=== PATIENT | male | born 1990 | race Caucasian/White ===

== ENCOUNTER 2025-07-04 23:39 | Emergency (ER) | payer OTHER, SELFPAY ==
--- NOTE | ~2025-07-04 | CT_ITS ---
CT abdomen pelvis w con Clinical History: abdominal pain, rectal bleeding . Comparison: None Technique: Axial images lung bases to symphysis pubis 100 mL Omnipaque 350 Coronal, sagittal reformats CT images acquired with automatic exposure control for dose reduction DLP: 457 mGy-cm Findings: Lung bases: Clear. Visualized heart and pericardium: Unremarkable. Liver: Unremarkable. Gallbladder: Unremarkable. Spleen: Unremarkable. Pancreas: Unremarkable. Adrenal glands: Unremarkable. Kidneys: Right kidney- No hydronephrosis. No renal stones. Small cyst. Left kidney- No hydronephrosis. No renal stones. Distal esophagus/stomach: Small sliding hiatal hernia. Small bowel loops: Normal caliber and wall thickness. Colon: Normal caliber and wall thickness. Normal RLQ appendix. Nodes: No enlarged nodes. Peritoneum: No ascites. No free air. Urinary bladder: Unremarkable. Prostate: Unremarkable. Bones: No acute bony abnormality. Soft tissues: Unremarkable. Aorta: No aneurysm or dissection. IVC: Unremarkable. Main portal vein/SMV/splenic vein: Patent. IMPRESSION: 1. No acute findings. Reviewed, dictated and finalized at location R. IMPRESSION: 1. No acute findings.
[2025-07-04 23:55] VITALS: BP 150/94; PULSE 69; RESP 18; TEMP 36.4; O2SAT 98
[2025-07-05 01:11] VITALS: BP 149/86; PULSE 79; RESP 15; O2SAT 99
[2025-07-05 01:16] VITALS: BP 146/86; PULSE 80; RESP 11; O2SAT 98
--- OUTSIDE RECORDS SUMMARY | 2025-07-05 01:19 | XMS_ITS | Encounter Summary ---
Author Organization [facility] Address [address] [place] [address] Care Team Providers Care Fruit Buying Grader Name Role Phone Unavailable Primary Care Provider Unavailabl e Encounter Details Date Type Department Care Team (Latest Contact Info) Description 10/08/2023 [facility] ADM Social History Tobacco Use Types Packs/Day Years Used Date Smoking Tobacco: Never Assessed Sex and Gender Information Value Date Recorded Sex Assigned at Not on file Legal Sex Male 8:50 AM [facility] Gender Identity Not on file Sexual Orientation Not on file documented as of this encounter Plan of Treatment Not on file documented as of this encounter Visit Diagnoses Not on filedocumented in this encounter
--- OUTSIDE RECORDS SUMMARY | 2025-07-05 01:19 | XMS_ITS | Clinical Summary ---
Author Organization [facility] Care Team Providers Care Feather Boner Name Role Phone Unavailable Primary Care Provider Unavailabl e Social History Tobacco Use Types Packs/Day Years Used Date Smoking Tobacco: Never Assessed Sex and Gender Information Value Date Recorded Sex Assigned at Not on file Legal Sex Male 10:56 AM [facility] Gender Identity Not on file Sexual Orientation Not on file Plan of Treatment Health Maintenance Due Date Last Done Comments Hepatitis C Virus (HCV) Screening 1989 Hepatitis B Immunization (1 of 3 - 19+ 3-dose series) 2008 Human Papillomavirus (HPV) Immunization (1 - 3-dose SCDM series) 2016 Influenza Immunization (#1) 05/07/202507/07, 06/06/2015 SARS-COV-2 Immunization ( season) 2025 12/15/2020, 11/19/2020 Respiratory Syncytial Virus (RSV) Immunization (Adult) (1 - 1-dose 75+ series) 2064 DTaP/Tdap/Td Immunization Discontinued 06/06/2015 TdaP Immunization Completed 06/06/2015 Meningococcal Immunization (ACWY) Aged Out No longer eligible based on patient's age to complete this topic Pneumococcal Immunization Combined Aged Out No longer eligible based on patient's age to complete this topic Rotavirus Immunization Aged Out No lo nger eligible based on patient's age to complete this topic
--- OUTSIDE RECORDS SUMMARY | 2025-07-05 01:19 | XMS_ITS | Encounter Summary ---
Author Organization [facility] Address [address] [place] [address] Care Team Providers Care Digital Producer Name Role Phone Unavailable Primary Care Provider Unavailabl e Encounter Details Date Type Department Care Team (Latest Contact Info) Description 08/11/2023 [facility] BIOMETRIC [facility] ADM Social History Tobacco Use Types Packs/Day Years Used Date Smoking Tobacco: Never Assessed Sex and Gender Information Value Date Recorded Sex Assigned at Not on file Legal Sex Male 8:50 AM [facility] Gender Identity Not on file Sexual Orientation Not on file documented as of this encounter Plan of Treatment Not on file documented as of this encounter Visit Diagnoses Not on filedocumented in this encounter
--- OUTSIDE RECORDS SUMMARY | 2025-07-05 01:19 | XMS_ITS | Clinical Summary ---
Author Organization [facility] Address [address] [place] [id number] Care Team Providers Care Manager Labor Relations Name Role Phone Unavailable Primary Care Provider Unavailabl e Social History Tobacco Use Types Packs/Day Years Used Date Smoking Tobacco: Never Assessed Sex and Gender Information Value Date Recorded Sex Assigned at Not on file Legal Sex Male 8:50 AM [facility] Gender Identity Not on file Sexual Orientation Not on file Plan of Treatment Not on file Insurance [facility]
--- OUTSIDE RECORDS SUMMARY | 2025-07-05 01:20 | XMS_ITS | Patient Health Record ---
Author Organization [facility] Address [address] [place], [place] [id number] Care Team Providers Care Superintendent Measurement Name Role Phone CRISTOFER REVELES Unavailable [phone] Shai Kauffman Unavailable Unavailable Reason For Referral No Information Social History Social History Additional Details Category Social Info Options Details Migrated Social History Migrated Social History History of tobacco use : , Smoking Status : Never smoked , Alcohol intake : Plan Of Treatment No Information Insurance Providers Payer Name Payer Address Payer Phone Subscriber Number Group Number Insured Name Patient Relationship to Insured Coverage Start Date Coverage End Date [facility] ATTN CLAIMS [address] [place] [address] [id number] ROBERT CABRAL Self - patient is the insured
--- OUTSIDE RECORDS SUMMARY | 2025-07-05 01:20 | XMS_ITS | Clinical Summary ---
Author Organization [facility] Address [address] [place] [address] Care Team Providers Care Resistor Coater Name Role Phone Unknown, Provider Primary Care Provider Unavaila ble Source Comments [facility],non-owned Affiliates and Associated Physician Practices is amultiple site organization consisting of ambulatory clinics and hospital sitesin [place], [place], [place] and [place]. This disclosure is being madepursuant to the Care Everywhere program and may not contain all information available regarding this patient. Last updated 18.[facility] Medications * Be aware that medications may not be up to date on this document. Alwaysverify current medications with the patient. No known medications Immunizations Immunization Administration Dates Next Due INFLUENZA VACCINE, QUADR. 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 Gender Identity Not on file Sexual Orientation Not on file Plan of Treatment Health Maintenance Due Date Last Done Comments HIV SCREENING 2004 HEPATITIS C SCREENING 08/15/2007 DTAP/TDAP/TD VACCINES (1 - Tdap) 2008 HEPATITIS B VACCINE (1 of 3 - 19+ 3-dose series) 2008 HPV VACCINE (1 - 3-dose SCDM series) 2016 DEPRESSION SCREENING 09/06/2024 COVID-19 VACCINE (3 - 2024-2 6 season) 2025 12/15/2020, 11/19/2020 INFLUENZA VACCINE (#1) 2025 1, 06/06/2015 ZOSTER VACCINE (1 of 2) 2039 HIB VACCINE Aged Out No longer eligi ble based on patient's age to complete this topic MENINGOCOCCAL (Group B) VACCINE SHARED DECISION-MAKING Aged Out No longer eligible based on patient's age to complete this topic MENINGOCOCCAL GROUPS A/C/Y/W VACCINE Aged Out No longer eligible b ased on patient's age to complete this topic PNEUMOCOCCAL VACCINE Aged Out No long er eligible based on patient's age to complete this topic Insurance [facility] Care Teams Resistor Coater Relationship Specialty Start Date End Date Unknown, Provider PCP - General 07/26/21
--- OUTSIDE RECORDS SUMMARY | 2025-07-05 01:20 | XMS_ITS | Encounter Summary ---
Author Organization [facility] Address [address] [place] [address] Care Team Providers Care Parts Room Associate Name Role Phone Unavailable Primary Care Provider Unavailabl e Encounter Details Date Type Department Care Team (Latest Contact Info) Description 08/09/2023 [facility] BIOMETRIC [facility] ADM Social History Tobacco Use Types Packs/Day Years Used Date Smoking Tobacco: Never Assessed Sex and Gender Information Value Date Recorded Sex Assigned at Not on file Legal Sex Male 8:50 AM [facility] Gender Identity Not on file Sexual Orientation Not on file documented as of this encounter Plan of Treatment Not on file documented as of this encounter Visit Diagnoses Not on filedocumented in this encounter
--- OUTSIDE RECORDS SUMMARY | 2025-07-05 01:20 | XMS_ITS | Encounter Summary ---
Author Organization [facility] Address [address] [place] [address] Care Team Providers Care Rag Willow Operator Name Role Phone Unavailable Primary Care Provider Unavailabl e Encounter Details Date Type Department Care Team (Latest Contact Info) Description 11/06/2022 [facility] [place] ADM Social History Tobacco Use Types Packs/Day Years Used Date Smoking Tobacco: Never Assessed Sex and Gender Information Value Date Recorded Sex Assigned at Not on file Legal Sex Male 8:50 AM [facility] Gender Identity Not on file Sexual Orientation Not on file documented as of this encounter Plan of Treatment Not on file documented as of this encounter Visit Diagnoses Not on filedocumented in this encounter
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
--- OUTSIDE RECORDS SUMMARY | 2025-07-05 01:20 | XMS_ITS | Encounter Summary ---
Author Organization [facility] Healthcare Address [address] [place] [address] Care Team Providers Care Senior Patrol Agent Name Role Phone Anton John MD Primary Care Provider [phone] Encounter Details Date Type Department Care Team (Late st Contact Info) Description 06/29/2025 Results Follow-Up [facility] Primary Care at [place] [id number] [place] [address] Anton John MD [address] [place] [address] [address] [place] [address] CBC with auto differential, Comprehensive metabolic panel, Lipid panel, Additional followed-up results: 2 Social History Tobacco Use Types Packs/Day Years Used Date Smoking Tobacco: Never Smokeless Tobacco: Never AUDIT-C Answer Date Recorded Q1: How often [...] on file 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
[2025-07-05 01:26] VITALS: BP 146/86; PULSE 96; RESP 13; O2SAT 100
--- NOTE | 2025-07-05 01:35 | ED_ITS ---
HPI - GI Bleed General Chief complaint: GI Bleed <Ritika Fletcher APRN - Last Filed: 07/05/25 03:21> Stated complaint: rectal pain, bleeding hemorrhoid <Ritika Fletcher APRN - Last Filed: 07/05/25 03:21> Time Seen by Provider: 07/05/25 01:08 <Ritika Fletcher APRN - Last Filed: 07/05/25 03:21> History of Present Illness HPI Narrative: Patient is a 34-year-old male who presents to the ER with concerns of rectal bleeding. He reports he was standing up to urinate around 830pm this evening when he heard a pop and then felt a large amount of blood hit bathroom floor. Patient reports he 1st noticed a hemorrhoid the on Wednesday but has had very little bleeding since then. He endorses intermittent rectal discomfort. Patient reports his last bowel movement was on Wednesday, 2 days ago. He reports it was a little harder than normal and he has been straining recently trying to have another bowel movement. Patient denies any urinary symptoms, recent fevers, acute back pain. he denies any other medical history relevant to this ER visit. <Ritika Fletcher APRN - Last Filed: 07/05/25 03:21> Related Data Allergies/Adverse reactions: Allergies Allergy/AdvReac Type Severity Reaction Status Date / Time Penicillins Allergy Intermediate hives Verified 07/04/25 23:41 <Ritika Fletcher APRN - Last Filed: 07/05/25 03:21> Review of Systems 2 Review of Systems: All systems reviewed & are unremarkable except as noted in HPI and below <Ritika Fletcher APRN - Last Filed: 07/05/25 03:21> PMFSH Family History Family History: Family History Grandparent Family history of malignant neoplasm, Onset Age: 66 Family history of Parkinson's disease, Onset Age: 88 Family history of pancreatic cancer, Onset Age: 91 Family history of lung cancer, Onset Age: 91 Acute myocardial infarction, Onset Age: 91 Mother Patient's mother is <Ritika Fletcher APRN - Last Filed: 07/05/25 03:21> Social History Social History: Social History Smoking status: Never smoker Alcohol intake: current <Ritika Fletcher APRN - Last Filed: 07/05/25 03:21> Exam 2 Narrative: GENERAL: Well appearing, well-nourished, non-toxic, in no acute distress. HEAD: Normocephalic, atraumatic. NECK: Supple. No adenopathy, no masses. RESPIRATORY: Airway patent, respirations nonlabored. Clear to auscultation bilaterally, no rales, rhonchi, wheezing. CARDIOVASCULAR: Regular rate and rhythm without murmurs, rubs, or gallops. Peripheral pulses 2+ and equal bilaterally. ABDOMINAL: Soft, nontender, nondistended, no hepatosplenomegaly. Normoactive BS. MUSCULOSKELETAL: Moves all extremities. Strength/ROM intact without gross deformities. SKIN: Warm, dry, normal color. No rashes. NEURO: A&O X3. Speech clear. Cranial nerves II-XII intact. No ataxic movements. PSYCHIATRIC: Appropriate mood and affect. Normal interaction. :Two palpable internal hemorrhoids, moderate amount of bright red blood coming from pt's rectum. No signs of incarcerated hemorrhoids. <Ritika Fletcher APRN - Last Filed: 07/05/25 03:21> Course Course Emergency Course: Patient care signed out by previous provider pending CT results. Patient's laboratory studies are all normal. CT scan independently reviewed shows no acute findings. Radiology confirms no acute findings. No soft tissue abnormality, no evidence of bowel obstruction, appendicitis or diverticulitis. No perianal or perirectal fluid collections. No soft tissue anomalies. No abnormal fluid or regional inflammation reaction. Discharged home with medications for his hemorrhoid. <Medhat Melchor MD - Last Filed: 07/05/25 04:28> Vital Signs Vital signs: Vital Signs Temperature 36.4 C L 07/04/25 23:55 Pulse Rate 69 07/04/25 23:55 Respiratory Rate 18 07/04/25 23:55 Blood Pressure 150/94 H 07/04/25 23:55 Pulse Oximetry 98 07/04/25 23:55 Oxygen Delivery Room Air 07/04/25 23:55 Temperature 36.4 C L 07/04/25 23:55 Pulse Rate 67 07/05/25 04:18 Respiratory Rate 13 07/05/25 04:18 Blood Pressure 133/86 07/05/25 04:18 Pulse Oximetry 100 07/05/25 04:18 Oxygen Delivery Room Air 07/05/25 01:26 <Ritika Fletcher APRN - Last Filed: 07/05/25 03:21> Vital Signs Temperature 36.4 C L 07/04/25 23:55 Pulse Rate 69 07/04/25 23:55 Respiratory Rate 18 07/04/25 23:55 Blood Pressure 150/94 H 07/04/25 23:55 Pulse Oximetry 98 07/04/25 23:55 Oxygen Delivery Room Air 07/04/25 23:55 Temperature 36.4 C L 07/04/25 23:55 Pulse Rate 67 07/05/25 04:18 Respiratory Rate 13 07/05/25 04:18 Blood Pressure 133/86 07/05/25 04:18 Pulse Oximetry 100 07/05/25 04:18 Oxygen Delivery Room Air 07/05/25 01:26 <Medhat Melchor MD - Last Filed: 07/05/25 04:28> MDM - GI Bleed MDM Narrative Medical decision making narrative: Patient is a 34-year-old male who presents to the ER with concerns of rectal bleeding. He reports he was standing up to urinate around 830pm this evening when he heard a pop and then felt a large amount of blood hit bathroom floor. Patient reports he 1st noticed a hemorrhoid the on Wednesday but has had very little bleeding since then. He endorses intermittent rectal discomfort. Patient reports his last bowel movement was on Wednesday, 2 days ago. He reports it was a little harder than normal and he has been straining recently trying to have another bowel movement. Patient denies any urinary symptoms, recent fevers, acute back pain. he denies any other medical history relevant to this ER visit. Labs Ordered: CBC, CMP, PTT, INR, lipase, type and screen Imaging Ordered: CT abdomen pelvis Medications Ordered: Anusol [place], 1 L normal saline IV bolus, Protonix 40 mg IV 0330- Care signed out to Dr. Melchor pending CT scan results. <Ritika Hickey CAS FletcherN - Last Filed: 07/05/25 03:21> Differential Diagnosis Differential diagnosis: Likely hemorrhoids, Lisette-Carr syndrome, Lower gastrointestinal hemorrhage, melena, anal fissure and other (constipation) <Ritika Hickey Justine [employer] - Last Filed: 07/05/25 03:21> Lab Data Attestation: I reviewed the patient's lab results. <Ritika Hickey [employer]ine [employer] - Last Filed: 07/05/25 03:21> Result diagrams: 07/05/25 02:16 07/05/25 02:16 <Ritika Hickey [employer]ine [employer] - Last Filed: 07/05/25 03:21> Labs: Lab Results 07/05/25 Range/Units 02:16 WBC 6.3 (4.5-10.0) K/mm3 RBC 4.89 (4.6-6.20) M/mm3 Hgb 14.5 (14.0-18.0) g/dL Hct 42.4 (42.0-52.0) % MCV 86.7 (80-100) fl MCH 29.7 (26-34) pg MCHC 34.2 (32-36) g/dl RDW 12.1 (11.5-14.5) % Plt Count 155 (150-375) k/mm3 MPV 10.4 (7.4-10.4) fl Immature Gran % (Auto) 0.3 (0-0.5) % Neut % (Auto) 62.0 (45.5-73.1) % Lymph % (Auto) 26.4 (18.3-44.2) % Dent % (Auto) 7.1 (2.6-8.5) % Eos % (Auto) 3.9 (0-4.4) % Baso % (Auto) 0.3 (0.2-1.2) % Lymph # (Auto) 1.67 (0.9-3.2) K/mm3 Dent # (Auto) 0.5 (0.1-0.6) K/mm3 Eos # (Auto) 0.3 (0-0.3) K/mm3 Baso # (Auto) 0.0 (0.0-0.1) K/mm3 Abs Immat Gran (auto) 0.02 (0.00-0.031) K/mm3 Absolute Neuts (auto) 3.9 (1.3-6.7) K/mm3 Absolute Nucleated RBC 0.000 (0.0-0.012) K/mm3 Nucleated RBC % 0.0 (0.0-0.2) % PT 13.2 (11.1-14.7) Seconds INR 1.0 APTT 31.6 (22.3-36.8) Seconds Sodium 137 (137-145) mmol/L Potassium 3.9 (3.4-5.0) mmol/L Chloride 104 (98-107) mmol/L Carbon Dioxide 24 (22-30) mmol/L Anion Gap 9 (4-12) mmol/L BUN 27 H (9-20) mg/dL Creatinine 0.94 (0.7-1.3) mg/dL Estim Creat Clear Calc 103 ml/min Estimated GFR > 60 (59 - ) Glucose 92 (65-110) mg/dL Calcium 9.1 (8.4-10.2) mg/dL Total Bilirubin 0.7 (0.2-1.3) mg/dL AST 23 (17-59) U/L ALT 20 (6-50) U/L Alkaline Phosphatase 65 (38-126) U/L Total Protein 7.4 (6.3-8.2) g/dL Albumin 4.4 (3.5-5.1) g/dL Lipase 84 (23-300) U/L Blood Type O Positive Antibody Screen Negative <Ritika Fletcher, [employer] - Last Filed: 07/05/25 03:21> Lab Results 07/05/25 Range/Units 02:16 WBC 6.3 (4.5-10.0) K/mm3 RBC 4.89 (4.6-6.20) M/mm3 Hgb 14.5 (14.0-18.0) g/dL Hct 42.4 (42.0-52.0) % MCV 86.7 (80-100) fl MCH 29.7 (26-34) pg MCHC 34.2 (32-36) g/dl RDW 12.1 (11.5-14.5) % Plt Count 155 (150-375) k/mm3 MPV 10.4 (7.4-10.4) fl Immature Gran % (Auto) 0.3 (0-0.5) % Neut % (Auto) 62.0 (45.5-73.1) % Lymph % (Auto) 26.4 (18.3-44.2) % Dent % (Auto) 7.1 (2.6-8.5) % Eos % (Auto) 3.9 (0-4.4) % Baso % (Auto) 0.3 (0.2-1.2) % Lymph # (Auto) 1.67 (0.9-3.2) K/mm3 Dent # (Auto) 0.5 (0.1-0.6) K/mm3 Eos # (Auto) 0.3 (0-0.3) K/mm3 Baso # (Auto) 0.0 (0.0-0.1) K/mm3 Abs Immat Gran (auto) 0.02 (0.00-0.031) K/mm3 Absolute Neuts (auto) 3.9 (1.3-6.7) K/mm3 Absolute Nucleated RBC 0.000 (0.0-0.012) K/mm3 Nucleated RBC % 0.0 (0.0-0.2) % PT 13.2 (11.1-14.7) Seconds INR 1.0 APTT 31.6 (22.3-36.8) Seconds Sodium 137 (137-145) mmol/L Potassium 3.9 (3.4-5.0) mmol/L Chloride 104 (98-107) mmol/L Carbon Dioxide 24 (22-30) mmol/L Anion Gap 9 (4-12) mmol/L BUN 27 H (9-20) mg/dL Creatinine 0.94 (0.7-1.3) mg/dL Estim Creat Clear Calc 103 ml/min Estimated GFR > 60 (59 - ) Glucose 92 (65-110) mg/dL Calcium 9.1 (8.4-10.2) mg/dL Total Bilirubin 0.7 (0.2-1.3) mg/dL AST 23 (17-59) U/L ALT 20 (6-50) U/L Alkaline Phosphatase 65 (38-126) U/L Total Protein 7.4 (6.3-8.2) g/dL Albumin 4.4 (3.5-5.1) g/dL Lipase 84 (23-300) U/L Blood Type O Positive Antibody Screen Negative <Medhat Melchor MD - Last Filed: 07/05/25 04:28> Discharge Plan Discharge Clinical Impression: Hemorrhoids, Constipation by delayed colonic transit <Ritika Fletcher APRN - Last Filed: 07/05/25 03:21> Patient Disposition: Home <Ritika Fletcher APRN - Last Filed: 07/05/25 03:21> Condition: Stable <Ritika Fletcher APRN - Last Filed: 07/05/25 03:21> Instructions: Antibiotic Form, Constipation (ED), Hemorrhoids (ED) <Ritika Fletcher APRN - Last Filed: 07/05/25 03:21> Additional Instructions: Please return to the ER with any worsening symptoms. Follow-up with your primary care provider as needed. Please remember to drink lots of water and increase your fiber intake. You may use the suppositories for hemorrhoid relief and Miralax to help relieve constipation. <Ritika Fletcher APRN - Last Filed: 07/05/25 03:21> Patient Language: French <Ritika Fletcher APRN - Last Filed: 07/05/25 03:21> Prescriptions: New hydrocortisone acetate [Hemmorex-HC] 25 mg suppository 25 mg RECTAL BID Qty: 24 0RF polyethylene glycol 3350 [Miralax] 17 gram/dose powder 17 g PO BID Qty: 238 0RF <Ritika Fletcher APRN - Last Filed: 07/05/25 03:21> Follow-up/Referrals: Shai Kauffman MD [Primary Care Provider, Internal Medicine] <Ritika Fletcher APRN - Last Filed: 07/05/25 03:21> Stand Alone Forms: Work/School Release IP <Ritika Fletcher APRN - Last Filed: 07/05/25 03:21> Time of Disposition: 03:53 <Ritika Fletcher APRN - Last Filed: 07/05/25 03:21> 03:53 <Medhat Melchor MD - Last Filed: 07/05/25 04:28>
[2025-07-05] MEDS: SODIUM CHLORIDE 0.9% IV 1,000 ML 999 ML IV CONT (02:12)
[2025-07-05] MEDS: PANTOPRAZOLE SODIUM IV 40 MG VIAL IV PUSH (02:12)
[2025-07-05 02:23] LABS: Hematocrit 42.4 % (42.0-52.0); Hemoglobin 14.5 g/dL (14.0-18.0); Immature Granulocyte Percent A 0.3 % (0-0.5); Lymphocytes Absolute Auto 1.67 K/mm3 (0.9-3.2); Mean Corpuscular HGB Conc 34.2 g/dl (32-36); Mean Corpuscular Hemoglobin 29.7 pg (26-34); Mean Corpuscular Volume 86.7 fl (80-100); Nucleated Red Blood Cells Absolute Auto 0.000 K/mm3 (0.0-0.012); Nucleated Red Blood Cells Perc 0.0 % (0.0-0.2); Platelet Count Result 155 k/mm3 (150-375); Red Blood Count 4.89 M/mm3 (4.6-6.20); White Blood Count 6.3 K/mm3 (4.5-10.0)
[2025-07-05 02:35] LABS: INR 1.0; Prothrombin Time 13.2 Seconds (11.1-14.7)
[2025-07-05 02:36] LABS: Partial Thromboplastin Time 31.6 Seconds (22.3-36.8)
[2025-07-05 02:39] LABS: Alanine Aminotransferase 20 U/L (6-50); Albumin Level 4.4 g/dL (3.5-5.1); Alkaline Phosphatase 65 U/L (38-126); Anion Gap 9 mmol/L (4-12); Aspartate Amino Transferase 23 U/L (17-59); Bilirubin,Total 0.7 mg/dL (0.2-1.3); Blood Urea Nitrogen 27 mg/dL (9-20); Calcium 9.1 mg/dL (8.4-10.2); Carbon Dioxide 24 mmol/L (22-30); Chloride 104 mmol/L (98-107); Estimated CRCL calculation 103 ml/min; Estimated Glomerular Filt Rate > 60; Glucose 92 mg/dL (65-110); Lipase 84 U/L (23-300); Potassium 3.9 mmol/L (3.4-5.0); Sodium 137 mmol/L (137-145); Total Protein 7.4 g/dL (6.3-8.2)
[2025-07-05 03:47] VITALS: BP 131/88; PULSE 94; RESP 12; O2SAT 96
[2025-07-05 04:18] VITALS: BP 133/86; PULSE 67; RESP 13; O2SAT 100
== END 2025-07-05 04:11 | disposition home or self-care (01) ==
PROVIDERS: Emergency Provider Registered Nurse; PCP Internal Medicine
DX: K64.8 Other hemorrhoids (principal); K59.01 Slow transit constipation
CPT/HCPCS: 36415; 74177; 80053; 83690; 85025; 85610; 85730; 86850; 86900; 86901; 96361; 96374; 99284; A9270; J2470; J7030; Q9967